=== PATIENT | female | born 1965 | race Caucasian/White ===

== ENCOUNTER 2018-04-24 23:15 | Emergency (ER) | payer OTHER ==
[~2018-04-24 23:15] MED LIST: ISOVUE-370 76%-LOCM 1 ML ONE
[2018-04-24] MEDS ORDERED: Morphine 10 MG/ML VIAL ONE (23:26)
[2018-04-24] MEDS ORDERED: Ondansetron HCl/PF 4 MG/2 ML Vial ONE (23:26)
[2018-04-24 23:50] LABS: #Basophils 0.2 thou/uL (0.0-0.2); #Eosinphils 0.4 thou/uL (0.0-0.7); #Lymphocytes 5.7 thou/uL (1.20-3.40); #Monocytes 0.8 thou/uL (0.11-0.59); #Neutrophils 7.2 thou/uL (1.40-6.50); %Basophils 1.1 % (0.0-1.0); %Eosinophils 3.1 % (0.0-10.0); %Lymphocytes 39.9 % (21.0-51.0); %Monocytes 5.8 % (0.0-10.0); %Neutrophils 50.1 % (42.0-75.0); Hemoglobin 14.1 g/dL (12.0-16.0); Mean Corpuscular HGB CONC 33.8 g/dL (32.0-36.0); Mean Corpuscular Hemoglobin 32.2 pg (27.0-31.0); Mean Corpuscular Volume 95.3 fL (78.0-98.0); Mean Platelet Volume 10.9 fL (7.4-10.4); Platelet Count 235 thou/uL (130-400); RBC Distribution Width 11.7 % (11.5-14.5); Red Blood Cell (RBC) Count 4.37 mill/uL (4.20-5.40); White Blood Cell (WBC) Count 14.3 thou/uL (4.8-10.8)
[2018-04-25] MEDS ORDERED: Fentanyl 100 MCG/2 ML VIAL ONE (00:09)
[2018-04-25] MEDS ORDERED: Ketorolac Tromethamine 30 MG/ML VIAL ONE (00:09)
[2018-04-25 00:28] LABS: Bilirubin Small (Negative); Blood, Urine Large (Negative); Clarity TURBID (Clear); Glucose, Urine (Dipstick) Negative (Negative); Leukocyte Negative (Negative); Nitrite Negative (Negative); Protein, Urine (Dipstick) 30 mg/dL (Neg-Trace); Urobilinogen 0.2 mg/dL (0.2-1.0); pH, Urine 5.5 (5.0-9.0)
[2018-04-25 00:29] LABS: Bacteria/HPF 1+ HPF (None Seen); Pathc Cast-AUWi Flag 2.03 (0-2.49); RBC/HPF GREATER THAN 50-TNTC HPF (0-3); WBC/HPF 21-50 HPF (0-3)
[2018-04-25 00:42] LABS: Hyaline Casts/LPF NONE SEEN LPF (0-3 Hyaline)
[2018-04-25 00:55] LABS: ALT (SGPT) 20 U/L (8-55); AST (SGOT) 21 U/L (5-34); Albumin 4.7 g/dL (3.5-5.0); Alkaline Phosphatase 76 U/L (40-150); Anion Gap 17 mmol/L (10-20); BUN (Urea Nitrogen) 13 mg/dL (9.8-20.1); Bilirubin, Total 0.3 mg/dL (0.2-1.2); Calc. Creatinine Clearance 0 mL/min (70-130); Calcium 9.7 mg/dL (7.8-10.44); Carbon Dioxide 21 mmol/L (22-29); Chloride 107 mmol/L (98-107); Estimated GFR-MDRD 67; Glucose 113 mg/dL (70-105); Protein, Total 7.7 g/dL (6.0-8.3); Sodium 141 mmol/L (136-145)
[2018-04-25 01:20] LABS: CK (CPK) 138 U/L (29-168); Lipase 53 U/L (8-78)
--- NOTE | 2018-04-25 07:19 | CT ---
CT ABDOMEN AND PELVIS WITH IV CONTRAST: Date: 04/24/18 HISTORY: Left lower quadrant pain. FINDINGS: Comparison made with exam of 12/27/16. The lung bases are clear. The liver, spleen, pancreas, adrenal glands, and kidneys are normal. The pa tient is post cholecystectomy and hysterectomy. There is a 4.0 mm calculus at the left UVJ with mild ipsilateral hydroureteronephrosis. No free air, free fluid, or lymphadenopathy seen. There are vascul ar calcifications without evidence of aneurysmal dilatation of the abdominal aorta. There are degener ative changes in the spine. There is sigmoid diverticulosis without evidence of diverticulitis. IMPRESSION: 1. 4.0 mm left UVJ calculus with mild ipsilateral hydroureteronephrosis. 2. Sigmoid diverticulosis. POS: [facility]
== END 2018-04-25 00:48 | disposition home or self-care (01) ==
LOC: ERS 23:15
DX: N13.2 Hydronephrosis with renal and ureteral calculous obstruction (principal); N30.00 Acute cystitis without hematuria; E03.9 Hypothyroidism, unspecified; K58.9 Irritable bowel syndrome, unspecified; F41.9 Anxiety disorder, unspecified; F32.9 Major depressive disorder, single episode, unspecified; F17.210 Nicotine dependence, cigarettes, uncomplicated; J45.909 Unspecified asthma, uncomplicated; Z79.899 Other long term (current) drug therapy
CPT/HCPCS: 74177; 80053; 81003; 81015; 82550; 83690; 85025; 87086; 96361; 96374; 96375; J1885; J2270; J2405; J3010

== ENCOUNTER 2018-05-04 04:29 | Observation (INO) | payer OTHER ==
[2018-05-04] MEDS ORDERED: Ketorolac Tromethamine 30 MG/ML VIAL ONE ×2 (04:49→10:27)
[2018-05-04 05:03] LABS: #Basophils 0.2 thou/uL (0.0-0.2); #Eosinphils 0.4 thou/uL (0.0-0.7); #Lymphocytes 5.1 thou/uL (1.20-3.40); #Monocytes 0.9 thou/uL (0.11-0.59); #Neutrophils 6.4 thou/uL (1.40-6.50); %Basophils 1.2 % (0.0-1.0); %Eosinophils 3.2 % (0.0-10.0); %Lymphocytes 39.4 % (21.0-51.0); %Monocytes 6.7 % (0.0-10.0); %Neutrophils 49.4 % (42.0-75.0); Hemoglobin 14.4 g/dL (12.0-16.0); Mean Corpuscular HGB CONC 34.2 g/dL (32.0-36.0); Mean Corpuscular Hemoglobin 32.5 pg (27.0-31.0); Mean Corpuscular Volume 94.8 fL (78.0-98.0); Mean Platelet Volume 10.7 fL (7.4-10.4); Platelet Count 272 thou/uL (130-400); RBC Distribution Width 12.1 % (11.5-14.5); Red Blood Cell (RBC) Count 4.43 mill/uL (4.20-5.40)
[2018-05-04 05:26] LABS: ALT (SGPT) 31 U/L (8-55); AST (SGOT) 40 U/L (5-34); Albumin 4.8 g/dL (3.5-5.0); Alkaline Phosphatase 68 U/L (40-150); Anion Gap 14 mmol/L (10-20); BUN (Urea Nitrogen) 16 mg/dL (9.8-20.1); Bilirubin, Total 0.5 mg/dL (0.2-1.2); Calc. Creatinine Clearance 0 mL/min (70-130); Calcium 10.5 mg/dL (7.8-10.44); Carbon Dioxide 23 mmol/L (22-29); Chloride 103 mmol/L (98-107); Estimated GFR-MDRD 36; Glucose 107 mg/dL (70-105); Potassium 5.1 mmol/L (3.5-5.1); Protein, Total 8.8 g/dL (6.0-8.3); Sodium 135 mmol/L (136-145)
[2018-05-04 05:28] LABS: Bilirubin Negative (Negative); Blood, Urine Negative (Negative); Clarity CLEAR (Clear); Glucose, Urine (Dipstick) Negative (Negative); Leukocyte Negative (Negative); Nitrite Negative (Negative); Protein, Urine (Dipstick) Negative (Neg-Trace); Specific Gravity, Urine 1.012 (1.002-1.036); Urobilinogen 0.2 mg/dL (0.2-1.0); pH, Urine 5.5 (5.0-9.0)
[2018-05-04] MEDS ORDERED: Morphine 4 MG/ML VIAL ONE (05:54)
[2018-05-04] MEDS ORDERED: Ondansetron HCl/PF 4 MG/2 ML Vial ONE ×2 (05:54→11:30)
--- NOTE | 2018-05-04 07:56 | RAD ---
ABDOMEN 1 VIEW: HISTORY: Worsening renal function. Past medical history of ureteral calculus, left side. COMPARISON: None. CORRELATION: CT abdomen and pelvis 04/24/2018. FINDINGS: Multiple calcifications project over the left hemipelvis. There is 1 calcification that corresponds to a previously noted distal left ureteral calculus. Given the patient's history, a distal left uret eral calculus is favored. Bowel gas pattern is nonspecific. IMPRESSION: Probable distal left ureteral calculus. POS: [facility]
[2018-05-04] MEDS ORDERED: Bisacodyl 10 MG SUPP ONE (08:47)
--- NOTE | 2018-05-04 09:23 | ULT ---
RENAL ULTRASOUND: HISTORY: Left-sided obstructive uropathy. COMPARISON: None. TECHNIQUE: Sagittal an transverse imaging of the kidneys is performed. FINDINGS: Bilaterally, no hydronephrosis. The right kidney measures 9.4 x 5.0 x 5.4 cm. The left kidney measu res 10.6 x 5.2 x 4.7 cm. The urinary bladder is identified. Orientor reports seeing a solitary ureteral jet. Orientor is unsure if it is left or right jet. IMPRESSION: No evidence of hydronephrosis. POS: [facility]
[2018-05-04] MEDS ORDERED: Fleet Enema 133 ML BOT FS SCH (09:30)
[2018-05-04] MEDS ORDERED: Magnesium Citrate 300 ML BOT PO SCH (12:00)
[2018-05-04] MEDS ORDERED: Magnesium Citrate 300 ML BOT ONE (12:24)
[2018-05-04] MEDS ORDERED: Promethazine HCl 25 MG/ML VIAL ONE (13:08)
[2018-05-04] MEDS ORDERED: Ondansetron HCl/PF 4 MG/2 ML Vial IVP PRN (14:51)
[2018-05-04] MEDS ORDERED: Acetaminophen 325 MG TAB PO PRN (14:51)
[2018-05-04] MEDS ORDERED: Sodium Chloride 0.9% 1,000 ML IV SCH (14:51)
[2018-05-04] MEDS ORDERED: Ondansetron ODT 4 MG TAB SL PRN (14:51)
[2018-05-04] MEDS ORDERED: Nicotine 14 MG PATCH TD SCH (16:00)
[2018-05-04] MEDS ORDERED: HYDROcodone/Acetaminophen 5/325 mg Tablet PO PRN (17:15)
[2018-05-04] MEDS: HYDROcodone/Acetaminophen 5/325 mg Tablet PO PRN (18:01)
[2018-05-04] MEDS: Sodium Chloride 0.9% 1,000 ML IV SCH (18:03)
--- NOTE | 2018-05-04 19:22 | HP ---
DATE OF ADMISSION: 05/04/2018 CHIEF COMPLAINT: Abdominal pain. PRIMARY CARE PHYSICIAN: Dr. Jaime Palacio. HISTORY OF PRESENT ILLNESS: Ms. Jean Baptiste is a 52-year-old female who has a past medical history of dyslipidemia, obesity, gastroesophageal reflux disease, IBS, hypothyroidism, renal stones, who came to the ER with some complaints of lower left quadrant pain. She states that this pain has been going on and off for the last 2 weeks, she was seen in the ER last week and was worked up for this, CT abdomen and pelvis did in fact show a renal stone, she was treated for this along with UTI, she was placed on [place] for pain control as needed along with Bactrim for her UTI. She states her pain started to get better; however, then it suddenly started getting worse over the weekend. She states over the last 5 days, the pain has been 8/10 pain, she also reports some nausea with no vomiting. She was told to follow up with a urologist when she left the ER last time; however, she has not been able to follow up with a urologist at this time. She has no other symptoms which include no chest pain, no shortness of breath. She does report some flank pain; however, this is just mild. REVIEW OF SYSTEMS: Positive for left lower quadrant pain, flank pain, nausea and all other review of systems negative, unless otherwise mentioned in the HPI. PAST MEDICAL HISTORY: Positive for IBS, hypothyroidism, asthma, obesity, depression and anxiety, renal stones. PAST SURGICAL HISTORY: Positive for cholecystectomy, hysterectomy, tonsillectomy. SOCIAL HISTORY: She does report half pack a day smoker, she reports alcohol use with 1-2 drinks per week, but denies any recreational drug use. PSYCHIATRIC HISTORY: Positive for depression and anxiety. FAMILY HISTORY: Denies any family history of heart disease. ALLERGIES: No known drug allergies. CURRENT MEDICATIONS: 1. Synthroid 25 mcg oral once daily. 2. Atorvastatin 40 mg once daily. 3. Protonix 40 mg daily. 4. Clonazepam 1 mg as needed. 5. Promethazine 12.5 mg as needed for nausea. 6. Tagamet 200 mg oral. 7. Cymbalta 60 mg once daily. 8. Zofran 4 mg every 6 hours as needed for nausea. 9. Toradol 10 mg oral every 6 hours as needed for pain. 10. Flomax 0.4 mg oral once daily. PHYSICAL EXAMINATION: GENERAL: She is alert and oriented x3, moderate distress due to pain. VITAL SIGNS: BP 152/77, pulse 60, respirations 20, temperature 97.6, O2 saturations 98% on room air. EENT: No scleral icterus. No conjunctival pallor. Moist mucous membranes. NECK: Supple, nontender, no masses noted, no JVD. RESPIRATORY: Clear to auscultation bilaterally. No wheezes or rhonchi. CARDIOVASCULAR: Positive S1 and 2 with a regularly rate and rhythm, no murmurs noted. ABDOMEN: Soft, tenderness in suprapubic area, positive bowel sounds. MUSCULOSKELETAL: Strength 5/5 in all 4 extremities. Moves all extremities equally. Normal range of motion. SKIN: No rashes or lesions noted. LYMPHATIC: No cervical, clavicular or posterior auricular lymphadenopathy noted. NEUROLOGIC: Cranial nerves II-XII intact. Deep tendon reflexes 2+. BACK: CVA tenderness bilaterally. LABORATORY DATA: WBC 13.0, RBC 4.48, hemoglobin 14.4. Sodium 135, potassium 5.1, creatinine 1.52, AST 40, ALT 31. Urinalysis unremarkable. DIAGNOSTIC IMAGING: CT abdomen and pelvis shows probable distal left ureteral calculus. Left-sided renal ultrasound shows no evidence of hydronephrosis at this time. ASSESSMENT AND PLAN: 1. Left lower quadrant pain, likely secondary to renal stone. We will place on IV fluid hydration which includes normal saline. Consult Urology for further evaluation. 2. Leukocytosis, likely reactive, UA negative for UTI. 3. Constipation, stable, she had received 2 suppositories and milk of magnesia. In the ER, she had resulted 3 bowel movements since. We will place on MiraLax daily and monitor closely. 4. Acute kidney injury, hold nephrotoxic medications, continue with intravenous fluids, monitor BMP. 5. Tobacco use. She has been counseled regarding smoking cessation and she will be placed on nicotine patch. 6. Alcohol use. She was advised to follow sobriety, we will monitor for withdrawal symptoms. 7. Hypertension, we will continue with home medications. We will follow closely. 8. Hypothyroidism, continue with home dose of Synthroid. 9. Depression and anxiety, continue with home regimen and follow closely. DISPOSITION: This patient will be admitted under observation, likely length of stay between 24-48 hours. Upon discharge, she will have further follow up with PCP and possible urologist as outpatient. MICK
[2018-05-05] MEDS: HYDROcodone/Acetaminophen 5/325 mg Tablet PO PRN (01:25)
[2018-05-05] MEDS ORDERED: Phenazopyridine HCl 97.5 MG TABLET PO SCH (01:45)
[2018-05-05] MEDS: Sodium Chloride 0.9% 1,000 ML IV SCH ×2 (03:19→10:19)
[2018-05-05 04:41] LABS: Eosinophils 5 % (0-10); Hemoglobin 12.4 g/dL (12.0-16.0); Lymphocytes 53 % (21-51); MDiff Complete? YES; Mean Corpuscular HGB CONC 33.5 g/dL (32.0-36.0); Mean Corpuscular Hemoglobin 32.4 pg (27.0-31.0); Mean Corpuscular Volume 96.6 fL (78.0-98.0); Mean Platelet Volume 9.9 fL (7.4-10.4); Monocytes 2 % (0-10); Neutrophil 40 % (42-75); PLT Morphology Comment Appears Adequate; Platelet Count 216 thou/uL (130-400); RBC Distribution Width 11.6 % (11.5-14.5); Red Blood Cell (RBC) Count 3.83 mill/uL (4.20-5.40); White Blood Cell (WBC) Count 8.1 thou/uL (4.8-10.8)
[2018-05-05 04:44] LABS: ALT (SGPT) 26 U/L (8-55); AST (SGOT) 26 U/L (5-34); Albumin 3.8 g/dL (3.5-5.0); Alkaline Phosphatase 56 U/L (40-150); Anion Gap 9 mmol/L (10-20); BUN (Urea Nitrogen) 12 mg/dL (9.8-20.1); Bilirubin, Total 0.6 mg/dL (0.2-1.2); Calc. Creatinine Clearance 110 mL/min (70-130); Carbon Dioxide 25 mmol/L (22-29); Chloride 112 mmol/L (98-107); Estimated GFR-MDRD 71; Globulin 2.5 g/dL (2.4-3.5); Glucose 79 mg/dL (70-105); Potassium 4.6 mmol/L (3.5-5.1); Protein, Total 6.3 g/dL (6.0-8.3); Sodium 141 mmol/L (136-145)
[2018-05-05] MEDS ORDERED: Polyethylene Glycol 3350 17 GM Packet PO SCH (09:00)
[2018-05-05] MEDS ORDERED: Enoxaparin Sodium 40 MG/0.4 ML SYRINGE SC SCH (09:00)
[2018-05-05] MEDS: Phenazopyridine HCl 97.5 MG TABLET PO SCH ×2 (10:18→13:28)
[2018-05-05 11:55] VITALS: BP 144/62; TEMP 97.8
[2018-05-05] MEDS ORDERED: Ibuprofen 600 MG TAB PO PRN (12:56)
--- NOTE | 2018-05-05 14:33 | CT ---
CT ABDOMEN WITHOUT COTNRAST CT PELVIS WIHTOUT CONTRAST: COMPARISON: 05/03/2016, 04/24/2018. HISTORY: Right-sided hydronephrosis and obstructive uropathy. Recently identified left ureteral calculus. FINDINGS: ABDOMEN CT: The lung bases are clear. Limited evaluation of the solid organs. Heart size is normal. No pericar dial effusion. Descending thoracic aorta and abdominal aorta are unchanged. Gallbladder is surgically absent. Limited evaluation of the solid organs by the lack of IV contrast. Grossly, no solid organ abnormali ty. No gastrohepatic, retrocrural, or periportal lymphadenopathy. No mesenteric mass, lymphadenopathy, free air, or free fluid. Limited evaluation of the alimentary canal by lack of oral contrast. No evidence of bowel obstructio n. Ileocecal junction is normal. Normal-caliber appendix. Scattered fecal material in a nondistend ed, nondilated colon. There are a few diverticulum in the sigmoid colon. No diverticulitis. There is a small focus of induration and air in the anterior right subcutaneous fat. Correlate for r ecent injection in this region. Bilaterally, no evidence of hydronephrosis, nephrolithiasis, or perinephric fat stranding. Bilateral ureters have a normal caliber. No hydroureter, periureteral fat stranding, or ureterolisthiasis. P reviously noted calcification along the left ureterovesicular junction has resolved. PELVIC CT: Hysterectomy changes are noted. Inadequate distention of the urinary bladder limits evaluation. No obvious calcifications within the urinary bladder. No pelvic mass, lymphadenopathy, free air, or jenn e fluid. No lytic or blastic lesions in the osseous structures. IMPRESSION: 1. No evidence of obstructive uropathy. 2. Interval passage of a previously noted calculus in the left ureterovesicular junction. POS: [facility]
--- NOTE | 2018-05-05 16:22 | CON ---
DATE OF CONSULTATION: 05/04/2018 REASON FOR CONSULTATION: Abdominal pain with a history of recent left ureteral calculus. HISTORY OF PRESENT ILLNESS: Ms. 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 Ms. Jean Baptiste had a CT scan done through the emergenc y room here at that time, apparently was discharged home with plans for followup with Dr. Ha . The patient developed new abdominal symptoms, this time in the right lower quadrant area and due t o the previous kidney stone, presented to the emergency department for evaluation and assessment. Aurea deglado was admitted via the emergency department on 05/04/2018. Patient underwent CT scanning today which demonstrates no evidence of ureteral calculus on the right side. No evidence of hydronephrosis or h ydroureter. There is no stranding about the kidney. The patient's left distal ureteral calculus is resolved based on the imaging studies. The patient was noted to have a large amount of stool loading consistent with dehydration and did have a bump in her creatinine as well. She was placed on high v olume replacement with IV fluid overnight. The patient has done well with improvement in her general creatinine. REVIEW OF SYSTEMS: CONSTITUTIONAL: No complaints of fever or chills. History of left lower quadran t pain in the last week and now right lower quadrant pain, as well as some discomfort in her flanks o n both sides. HEAD, EYES, EARS, NOSE, AND THROAT: Negative. PULMONARY: Negative. CARDIAC: Negat geetha. GASTROINTESTINAL: Positive for constipation history. GENITOURINARY: Patient reports that she has had some microscopic hematuria in the last year, but has never been able to see any blood in her urine. Of note, she is a current and long-term cigarette smoker. MUSCULOSKELETAL: Negative. ENDO CRINOLOGIC: Negative. PAST MEDICAL HISTORY: 1. Irritable bowel syndrome. 2. Hypothyroidism. 3. Asthma. 4. Obesity. 5. Depression and anxiety. 6. Nephrolithiasis as documented a little over a week ago; however, the patient does not report havi ng seen urologist before, but she has been in contact with Dr. Ha's office. PAST SURGICAL HISTORY: 1. Cholecystectomy. 2. Hysterectomy. 3. Tonsillectomy. SOCIAL HISTORY: The patient is a half pack per day cigarette smoker, which she has used long-term co nsists. Conservatively a [id number] cigarette smoking history. She consumes alcohol rarely. No r ecreational drug use. 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 PSYCHIATRIC HISTORY: Positive for depression and anxiety. FAMILY MEDICAL HISTORY: No family history of heart disease or kidney stones. ALLERGIES: No known drug allergies. COMPLETE OUTPATIENT MEDICATION LIST: Includes the followin. Synthroid 25 mcg p.o. daily. 2. Atorvastatin 40 mg p.o. daily. 3. Protonix 40 mg per day. 4. Clonazepam 1 mg as needed. 5. Promethazine 12.5 mg as needed for nausea. 6. Tagamet 200 mg per day. 7. Cymbalta 60 mg once daily. 8. Zofran 4 mg q.6 hours as needed for nausea. 9. Toradol 10 mg every 6 hours as needed for pain. 10. Flomax 0.4 mg p.o. daily. PHYSICAL EXAMINATION: VITAL SIGNS: Currently, patient has been afebrile throughout her hospitalization and is currently af ebrile with a current temperature of 97.8, pulse is 66, respirations 16, O2 saturation 95% on room ai r, blood pressure is 144/62. After hydration, she had a low range blood pressure at initial admissio n on 05/04/2018. HEAD, EYES, EARS, NOSE, AND THROA: Extraocular movements are intact. Sclerae are anicteric. Oropha rynx is clear. NECK: Supple. LUNGS: Clear to auscultation bilaterally. CARDIOVASCULAR: Regular rate and rhythm without murmur, rub or gallop. ABDOMEN: Soft, moderately obese, and nontender. Percussion of the abdomen reveals some resonance in all 4 quadrants. The patient does reports that she has had right lower quadrant pain during this ho spitalization which seems to be a little bit improved today. BACK: No costovertebral tenderness on either side. No bony tenderness along the course of the spine . PELVIC: Examination is deferred. EXTREMITIES: Appear within normal limits with no disability present. NEUROLOGIC: Cranial nerves III-XI are grossly intact. The patient is able to move all 4 extremities against gravity and has no gross focal neurologic deficits. LABORATORY DATA: The patient's urinalysis from 05/04/2018 showed no blood, nitrites or leukocyte est erase. The patient did have a urinalysis on 04/25/2018 which showed 21-50 white cells per high power field and greater than 50 red cells per high power field. The patient's urine was positive for 1+ b acteria at that time and 7-10 squamous epithelial cells were present consistent with possible contami nation of the specimen. Current urinalysis is essentially negative. Urine gravity on urinalysis is 1.012 indicating reasonab le hydration at this point. Hematologic profile on 05/05/2018 at 04:04 a.m. shows 8.1 thousand white cells. The patient's hemogl obin is 12.4 with hematocrit of 36.9. The patient does not have any evidence of left shift on a jason tologic profile from 05/04/2018. RADIOLOGIC STUDIES: I reviewed the patient's CT scan of the abdomen and pelvis which is available on the PACS system, but not through the hospital or ER documentation from 04/24/2018. This study demon strates a slight perfusion delay on this contrast study. The cortical medullary phase is delayed on the patient's left side. There is left-sided hydroureter, which extends to a very small calcificatio n about 2-3 mm at the ureterovesical junction on the left side. This measured on the calipers out at 4 mm. However, I think this calculus may be smaller than that. The patient had a followup CT scan of the abdomen and pelvis which was performed on 05/05/2018 at 1:00 p.m. and this study shows the pre viously observed left distal ureteral calculus is no longer present. There are phleboliths present w ithin the patient's pelvis, but these do not correlate with the patient's ureter on the right side. There is no evidence of significant hydronephrosis or hydroureter on either side. There is no strand ing on the left or right side and previously observed hydronephrosis and hydroureter seen on the susan ent's left side has resolved. Serum chemistries obtained on 04/24/2018 showed patient's white count elevated at 14.3 thousand; on it was 13.0 thousand and on 05/05/2018 it decreased to 8.1 thousand. The patient had no ev idence of left shift on any of those evaluations, but did have an elevated ANC of 7.2 thousand on 04/2018. Serum chemistries demonstrated an elevated serum creatinine of 1.52 on 05/04/2018 which res olved today to 0.84 close to her previous baseline of 0.89. ASSESSMENT AND PLAN: 1. History of left ureteral nephrolithiasis with apparent passage of her left ureteral calculus. Th e patient has no current evidence of obstruction or calculus in her urinary tract. CT scan obtained today shows no obstructing calculi, no hydronephrosis, hydroureter or stranding. At the present time , the patient would be suitable from a urologic standpoint for outpatient management. Clinical exami nation, the patient does not find current evidence of obstruction on clinical exam. The patient's wh ite count normalized suggesting that she has a decreased risk of infectious process. 2. Kidney stone risk factors. The patient apparently does have dehydration episodes as manifested b y the kidney stones and her constipation issues. Adequate hydration is recommended for the patient. The patient may well benefit from a followup evaluation in Dr. Ha's office with Fouzia romo. 3. Microscopic hematuria in the presence of cigarette smoking. This patient is a current and long-t erm cigarette smoker and has had the episode of microscopic hematuria that which showed greater than 50 red cells per high power field. This was in the context of a documented stone. This most likely is the cause. The patient may benefit from follow up for microscopic hematuria in the future. A uri nalysis would be an important follow up study. Total evaluation assessment time on this patient toda y is in excess of 60 minutes.
--- NOTE | 2018-05-05 18:27 | DIS ---
DATE OF ADMISSION: 05/04/2018 DATE OF DISCHARGE: 05/05/2018 DISCHARGE DIAGNOSES: 1. Left lower quadrant pain secondary to renal stone. 2. Renal stone, resolved. 3. Constipation, stable. 4. Acute kidney injury, resolved. 5. Hypertension, stable. 6. Hypothyroidism, stable. 7. Leukocytosis, resolved. CONSULTATIONS: Urology, Dr. Claudio. PERTINENT LABORATORY AND DIAGNOSTIC FINDINGS: WBC 8.1, RBC 3.83, hemoglobin 12.4, platelet 216,000. Sodium 141, potassium 4.6, creatinine 0.84, AST 26, ALT 26. Urinalysis unremarkable. CT abdomen an d pelvis with contrast showed probable distal left ureteral calculus. Left-sided renal ultrasound sh owed no evidence of hydronephrosis at this time. Repeat CT with stone protocol showed no evidence of obstructive uropathy with an interval passage of a previous noted calculus in the left ureterovesicu lar junction. HOSPITAL COURSE: Ms. Jean Baptiste is a pleasant 52-year-old female with a past medical history of dyslipide yu, obesity, gastroesophageal reflux disease, IBS, hypothyroidism, and previous history of renal sto milli, came in to the Emergency Department with some complaints of left lower quadrant pain, nausea wit h no vomiting on and off for the last 2 weeks. She had been seen prior to this visit for a workup, w hich included a CT abdomen and pelvis, which did show a renal stone at that time. She later was disc harged from the ED with a plan to follow up with a urologist and was put on Bactrim for a UTI at that time. She had stated that these symptoms continued; however, did improve for about a day or so and then returned. She states over the weekend, this had started to get worse, which brought her back to the ED. She also was found to be constipated. After a Fleets enema and a dose of milk of magnesia, she was able to resolve with 3 bowel movements. Her pain did originate in the left lower quadrant; however, it did radiate to the right side along with left flank. She then was admitted to [facility]. Urology services, Dr. Claudio, was consulted for further evaluation. She was made n.p.o. at midnight. She was started on MiraLax daily to prevent further constipation. Her pain did in fac t improve. Her symptoms of nausea also improved. She had no further episodes for the remainder of h ospital course. A repeat CT scan was obtained the next morning, which showed no evidence of obstruct geetha uropathy with an interval passage of a previously noted calculus in the left ureterovesicular bill ction. Dr. Claudio came and evaluated the patient and he had felt at this time that the patient had pa ssed her stone. He had felt that the patient's status of dehydration episodes manifested by the kidn ey stones and her constipation issues, he did in fact recommend an adequate hydration regimen for the patient. He also recommended following up with the patient's urologist, Dr. Ha, for furthe r uro risk evaluation. He states, at this time, no further workup needed along with no surgical inte rvention at this time, as the patient most likely had passed her stone. She was seen and examined pr ior to discharge. No further complaints of chest pain, shortness of breath, or abdominal pain. She was nontender to palpation throughout her abdomen with positive bowel sounds. She was recommended to continue the MiraLax daily to prevent constipation and also to follow an adequate hydration regimen as well. She had verbalized her understanding for the care plan. She also was instructed to continu e her home medications and follow up with Dr. Ha as outpatient. She was determined to be me dically stable for discharge home on 05/05/2018. DISCHARGE MEDICATIONS: 1. Ibuprofen 600 mg oral every 6 hours as needed for mild pain. 2. MiraLax 17 grams oral daily. 3. Clonazepam 1 mg twice daily as needed for anxiety. 4. Protonix 40 mg daily. 5. Atorvastatin 40 mg daily. 6. Synthroid 50 mcg oral daily. 7. Wellbutrin 75 mg twice daily. 8. Tagamet 300 mg oral 4 times daily. FOLLOWUP: The patient was instructed to follow up with her primary care physician, Dr. Jaime Palacio , in 1-2 weeks. She also was instructed to follow up with Dr. Ha, Urology, in 1-2 weeks. CONDITION ON DISCHARGE: Stable. ACTIVITY: No restrictions. DIET: Regular with adequate hydration. CODE STATUS: FULL CODE. DISPOSITION: Home on 05/05/2018.
[2018-05-05] MEDS ORDERED: buPROPion 75 MG TAB PO SCH (21:00)
== END 2018-05-05 14:58 | disposition home or self-care (01) ==
LOC: ERS 04:29 → ONC 11:43
PROVIDERS: ADMIT Internal Medicine Infectious Disease; ATTEND Internal Medicine Infectious Disease
DX: N20.0 Calculus of kidney (principal); E78.5 Hyperlipidemia, unspecified; N17.9 Acute kidney failure, unspecified; K58.1 Irritable bowel syndrome with constipation; D72.829 Elevated white blood cell count, unspecified; K21.9 Gastro-esophageal reflux disease without esophagitis; E03.9 Hypothyroidism, unspecified; J45.909 Unspecified asthma, uncomplicated; F41.8 Other specified anxiety disorders; F17.210 Nicotine dependence, cigarettes, uncomplicated; F32.9 Major depressive disorder, single episode, unspecified; F41.9 Anxiety disorder, unspecified; E66.9 Obesity, unspecified; Z68.29 Body mass index [BMI] 29.0-29.9, adult; Z79.899 Other long term (current) drug therapy
CPT/HCPCS: 36415; 74018; 74176; 76770; 80053; 81003; 85025; 96361; 96365; 96372; 96375; 96376; G0378; J1650; J1885; J2270; J2405; J2550

== ENCOUNTER 2018-06-19 01:30 | Emergency (ER) | payer OTHER ==
[2018-06-19] MEDS ORDERED: Acetaminophen 325 MG TAB ONE (01:52)
[2018-06-19] MEDS ORDERED: Ondansetron ODT 4 MG TAB ONE (01:52)
[2018-06-19] MEDS ORDERED: Ketorolac Tromethamine 60 MG/2 ML VIAL ONE (02:36)
--- NOTE | 2018-06-19 08:53 | CT ---
PRELIMINARY REPORT/[facility]/EMERGENTY AFTER-HOURS PROCEDURE CT Head Without Contrast EXAM DATE/TIME: 06/19/2018 2:02 AM CLINICAL HISTORY: 52 years old, female; Injury or trauma; Injury history: Head trauma; Work related; Initial encounter; Abrasion; Head, generalized; Patient HX: Hit head on xray machine. Feeling pain to head and behind l eft eye. TECHNIQUE: Axial computed tomography images of the head/brain without contrast. COMPARISON: No relevant prior studies available. FINDINGS: Brain: Normal. Ventricles: Normal. Bones/joints: Normal. Sinuses: Normal as visualized. Mastoid air cells: Normal as visualized. Soft tissues: Normal. IMPRESSION: No acute intracranial abnormality. Thank you for allowing us to participate in the care of your patient. Dictated and Authenticated by: Etienne Tony MD 06/19/2018 2:14 AM Central Time ([place] & [place]) FINAL REPORT EMERGENCY AFTER HOURS CT BRAIN: Date: 06/19/18 FINDINGS/IMPRESSION: I agree with the above provided preliminary interpretation from [facility]. No acute intracranial hemorrhage or mass effect. POS: [facility]
== END 2018-06-19 02:45 | disposition home or self-care (01) ==
LOC: ERS 01:30
DX: S09.90XA Unspecified injury of head, initial encounter (principal); E03.9 Hypothyroidism, unspecified; E78.5 Hyperlipidemia, unspecified; F17.210 Nicotine dependence, cigarettes, uncomplicated; Z79.899 Other long term (current) drug therapy; W31.89XA Contact with other specified machinery, initial encounter
CPT/HCPCS: 70450; 96372; J1885; Q0162

== ENCOUNTER 2018-12-10 10:56 | Outpatient (CLI) | payer OTHER | END 2018-12-10 10:57 | disposition home or self-care (01) | LOC: DTY/OP 10:56 | PROVIDERS: ATTEND Surgery | DX: E66.01 Morbid (severe) obesity due to excess calories (principal) | CPT/HCPCS: 97802 ==

== ENCOUNTER 2018-12-26 23:50 | Emergency (ER) | payer OTHER ==
[2018-12-27 00:35] LABS: #Basophils 0.2 thou/uL (0.0-0.2); #Eosinphils 0.1 thou/uL (0.0-0.7); #Lymphocytes 3.4 thou/uL (1.20-3.40); #Monocytes 0.7 thou/uL (0.11-0.59); #Neutrophils 10.7 thou/uL (1.40-6.50); %Basophils 1.2 % (0.0-1.0); %Eosinophils 0.8 % (0.0-10.0); %Lymphocytes 22.6 % (21.0-51.0); %Monocytes 4.5 % (0.0-10.0); %Neutrophils 70.9 % (42.0-75.0); Hemoglobin 14.5 g/dL (12.0-16.0); Mean Corpuscular HGB CONC 33.8 g/dL (32.0-36.0); Mean Corpuscular Volume 94.7 fL (78.0-98.0); Mean Platelet Volume 10.9 fL (7.4-10.4); Platelet Count 221 thou/uL (130-400); RBC Distribution Width 12.1 % (11.5-14.5); Red Blood Cell (RBC) Count 4.54 mill/uL (4.20-5.40)
[2018-12-27] MEDS ORDERED: Ondansetron PF 4 MG/2 ML Vial ONE (00:57)
[2018-12-27] MEDS ORDERED: Morphine 4 MG/ML VIAL ONE ×2 (00:57→02:08)
[2018-12-27 00:59] LABS: ALT (SGPT) 22 U/L (8-55); AST (SGOT) 23 U/L (5-34); Albumin 4.5 g/dL (3.5-5.0); Alkaline Phosphatase 76 U/L (40-150); Anion Gap 17 mmol/L (10-20); BUN (Urea Nitrogen) 16 mg/dL (9.8-20.1); Bilirubin, Total 0.3 mg/dL (0.2-1.2); Calc. Creatinine Clearance 0 mL/min (70-130); Calcium 10.1 mg/dL (7.8-10.44); Carbon Dioxide 19 mmol/L (22-29); Chloride 107 mmol/L (98-107); Estimated GFR-MDRD 57; Globulin 3.5 g/dL (2.4-3.5); Glucose 112 mg/dL (70-105); Lipase 26 U/L (8-78); Potassium 4.4 mmol/L (3.5-5.1); Sodium 139 mmol/L (136-145)
[2018-12-27 01:09] LABS: Bilirubin Small (Negative); Blood, Urine Negative (Negative); Clarity CLOUDY (Clear); Glucose, Urine (Dipstick) Negative (Negative); Leukocyte Negative (Negative); Nitrite Negative (Negative); Protein, Urine (Dipstick) Negative (Neg-Trace); Specific Gravity, Urine 1.028 (1.002-1.036); Urobilinogen 0.2 mg/dL (0.2-1.0)
--- NOTE | 2018-12-27 07:41 | CT ---
PRELIMINARY REPORT/[facility]/AFTER HOURS PROCEDURE EXAM: CT Abdomen and Pelvis With Contrast EXAM DATE/TIME: 12/27/2018 1:10 AM CLINICAL HISTORY: 53 years old, female; Abdominal pain; Localized; Prior surgery; Patient HX: Er 8. 53 y/o F presents t o ED C/O sudden onset of lower abd pain at 1900 last night, with associated diarrhea at approx 2200 last night, nausea. Denies hematuria, dysuria, vomiting, bld in stool, fever, chills, vaginal bleedin g or discharge. No current RX steroid use. Surgical history of cholecystectomy, hysterectomy TECHNIQUE: Imaging protocol: Axial computed tomography images of the abdomen and pelvis with intravenous contrast. Coronal reformatted images were created and reviewed. COMPARISON: No relevant prior studies available. FINDINGS: ABDOMEN: Liver: No acute findings. Fatty liver. No mass. Gallbladder and bile ducts: Prior cholecystectomy. Pancreas: No acute findings. No mass. No ductal dilation. Spleen: No acute findings. No mass. Adrenals: No acute findings. No mass. Kidneys and ureters: No acute findings. No mass. No hydronephrosis. Stomach and bowel: Fluid-filled distal small bowel loops and colon segments with possible wall enhancement/thickening, which could relate to enterocolitis. No evidence of bowel obstruction. Appendix: Normal appendix. PELVIS: Bladder: The bladder is decompressed. Reproductive: No acute findings. ABDOMEN and PELVIS: Intraperitoneal space: No free air. No significant fluid collection. Bones/joints: No acute fracture. Soft tissues: No acute findings. Vasculature: Atherosclerotic calcifications. No aortic aneurysm. Lymph nodes: No significant lymphadenopathy. IMPRESSION: Possible enterocolitis. Thank you for allowing us to participate in the care of your patient. Dictated and Authenticated by: Jose Manuel Mir MD 12/27/2018 2:08 AM Central Time ([place] & [place]) FINAL REPORT CT ABDOMEN AND PELVIS WITH IV CONTRAST PERFORMED ON AN EMERGENCY BASIS 12/27/2018 0112 HOURS HISTORY: Abdominal pain. Nausea and diarrhea. COMPARISON: 05/05/2018 FINDINGS: Agree with the preliminary report by Dr. Mir from [facility]. No urinary tract abnormalities are apparent. Gallbladder is surgically absent. Prominent atheroscle rosis. Fluid-filled loops of small bowel and colon with subtle wall enhancement. Possible enterocolitis. No evidence of bowel obstruction. Code QA Transcribed Date/Time: 12/27/2018 8:15 AM
== END 2018-12-27 02:41 | disposition home or self-care (01) ==
LOC: ERS 23:50
DX: R10.30 Lower abdominal pain, unspecified (principal); E03.9 Hypothyroidism, unspecified; K58.9 Irritable bowel syndrome, unspecified; J45.909 Unspecified asthma, uncomplicated; F41.9 Anxiety disorder, unspecified; F32.9 Major depressive disorder, single episode, unspecified; F17.210 Nicotine dependence, cigarettes, uncomplicated; Z79.899 Other long term (current) drug therapy
CPT/HCPCS: 74177; 80053; 81003; 83690; 85025; 96374; 96375; 96376; J2270; J2405

== ENCOUNTER 2019-01-07 12:38 | Outpatient (CLI) | payer OTHER | END 2019-01-07 12:39 | disposition home or self-care (01) | LOC: DTY/OP 12:38 | PROVIDERS: ATTEND Surgery | DX: E66.01 Morbid (severe) obesity due to excess calories (principal) | CPT/HCPCS: 97802 ==

== ENCOUNTER 2019-02-05 12:48 | Outpatient (CLI) | payer OTHER | END 2019-02-05 12:49 | disposition home or self-care (01) | LOC: DTY/OP 12:48 | PROVIDERS: ATTEND Surgery | DX: E66.01 Morbid (severe) obesity due to excess calories (principal) | CPT/HCPCS: 97802 ==

== ENCOUNTER 2019-03-14 08:52 | Outpatient (CLI) | payer OTHER | END 2019-03-14 08:53 | disposition home or self-care (01) | LOC: DTY/OP 08:52 | PROVIDERS: ATTEND Family Medicine | DX: E66.01 Morbid (severe) obesity due to excess calories (principal) | CPT/HCPCS: 97802 ==

== ENCOUNTER 2019-04-15 10:15 | Outpatient (CLI) | payer OTHER ==
[2019-04-15 15:32] LABS: #Basophils 0.1 thou/uL (0.0-0.2); #Eosinphils 0.2 thou/uL (0.0-0.7); #Lymphocytes 3.1 thou/uL (1.20-3.40); #Monocytes 0.7 thou/uL (0.11-0.59); #Neutrophils 6.7 thou/uL (1.40-6.50); %Basophils 1.3 % (0.0-1.0); %Eosinophils 1.9 % (0.0-10.0); %Lymphocytes 28.6 % (21.0-51.0); %Monocytes 6.4 % (0.0-10.0); %Neutrophils 61.9 % (42.0-75.0); Hemoglobin 14.8 g/dL (12.0-16.0); Mean Corpuscular HGB CONC 34.9 g/dL (32.0-36.0); Mean Corpuscular Hemoglobin 32.5 pg (27.0-31.0); Mean Corpuscular Volume 93.1 fL (78.0-98.0); Mean Platelet Volume 11.1 fL (7.4-10.4); Platelet Count 216 thou/uL (130-400); Red Blood Cell (RBC) Count 4.55 mill/uL (4.20-5.40); White Blood Cell (WBC) Count 10.9 thou/uL (4.8-10.8)
[2019-04-15 15:48] LABS: Hemoglobin A1c 5.5 % (4.0-6.0)
--- NOTE | 2019-04-15 15:49 | RAD ---
EXAM: Two views chest PROVIDED CLINICAL HISTORY: Preop COMPARISON: 01/14/2015 FINDINGS: Cardiac and mediastinal silhouette appears within normal limits. Lungs appear free of significant opa city. No pleural fluid or pneumothorax apparent. IMPRESSION: No evidence for an acute cardiopulmonary process.
[2019-04-15 15:51] LABS: ALT (SGPT) 26 U/L (8-55); AST (SGOT) 20 U/L (5-34); Albumin 4.5 g/dL (3.5-5.0); Alkaline Phosphatase 74 U/L (40-110); Anion Gap 15 mmol/L (10-20); BUN (Urea Nitrogen) 19 mg/dL (9.8-20.1); Bilirubin, Direct 0.2 mg/dL (0.1-0.3); Bilirubin, Total 0.4 mg/dL (0.2-1.2); Calc. Creatinine Clearance 0 mL/min (70-130); Calcium 10.4 mg/dL (7.8-10.44); Carbon Dioxide 23 mmol/L (22-29); Chloride 104 mmol/L (98-107); Estimated GFR-MDRD 60; Globulin 3.2 g/dL (2.4-3.5); Glucose 90 mg/dL (70-105); Potassium 3.8 mmol/L (3.5-5.1); Protein, Total 7.7 g/dL (6.0-8.3); Sodium 138 mmol/L (136-145)
--- NOTE | 2019-04-16 19:58 | EKG ---
Test Reason : Blood Pressure : / mmHG Vent. Rate : 066 BPM Atrial Rate : 066 BPM P-R Int : 144 ms QRS Dur : 084 ms QT Int : 370 ms P-R-T Axes : 050 043 107 degrees QTc Int : 387 ms Normal sinus rhythm Nonspecific T wave abnormality Abnormal ECG When compared with ECG of 16-MAY-2016 20:49, Nonspecific T wave abnormality, worse in Inferior leads Confirmed by BEAR AVILES, SÁngel ([id number]) on 04/16/2019 7:58:12 PM Referred By: PATI Confirmed By:DR. Jean SIFUENTES MD
== END 2019-04-15 10:16 | disposition home or self-care (01) ==
LOC: LABBT 10:15
PROVIDERS: ATTEND Surgery
DX: Z01.818 Encounter for other preprocedural examination (principal); E66.01 Morbid (severe) obesity due to excess calories
CPT/HCPCS: 71046; 80053; 80076; 83036; 85025; 93005; 93010

== ENCOUNTER 2019-04-15 14:30 | Inpatient (IN) | payer OTHER ==
[2019-04-15 14:48] VITALS: BMI 35.5
[2019-04-24] MEDS ORDERED: Famotidine/PF 20 mg/2ml Vial ONE (09:01)
[2019-04-24] MEDS ORDERED: Heparin 5,000 UNITS/ML VIAL ONE (09:01)
[2019-04-24] MEDS ORDERED: Midazolam HCl 2 mg/2 ml Vial ONE ×2 (10:07→10:09)
[2019-04-24] MEDS ORDERED: SUGAMMADEX SODIUM 200 MG/2 ML VIAL ONE (10:09)
[2019-04-24] MEDS ORDERED: Fentanyl 100 MCG/2 ML VIAL ONE ×3 (10:09→12:05)
[2019-04-24] MEDS ORDERED: Bupivacaine/Epinephrine 0.25% 30 ML VIAL ONE ×2 (10:18→10:25)
[2019-04-24] MEDS ORDERED: Ondansetron HCl/PF 4 MG/2 ML Vial IVP PRN (11:54)
[2019-04-24] MEDS ORDERED: Promethazine HCl 25 MG/ML VIAL IM PRN ×3 (11:54→13:09)
[2019-04-24] MEDS ORDERED: Promethazine HCl 25 MG/ML VIAL SLOW IVP PRN (11:54)
[2019-04-24] MEDS ORDERED: diphenhydrAMINE 50 MG/ML VIAL IM PRN (11:59)
[2019-04-24] MEDS ORDERED: fentaNYL Citrate/PF 2,000 MCG in Sodium Chloride 0.9% 60 ML IV PRN (11:59)
[2019-04-24] MEDS ORDERED: Zolpidem Tartrate 5 MG TAB PO PRN (11:59)
[2019-04-24] MEDS ORDERED: Naloxone HCl 0.4 mg/ml Vial IV PRN (11:59)
[2019-04-24] MEDS ORDERED: diphenhydrAMINE 25 MG CAP PO PRN (11:59)
[2019-04-24] MEDS ORDERED: Ondansetron PF 4 MG/2 ML Vial IVP PRN ×2 (11:59→13:09)
[2019-04-24] MEDS ORDERED: diphenhydrAMINE 50 MG/ML VIAL IVP PRN ×2 (11:59→13:09)
[2019-04-24] MEDS ORDERED: Communication Order-Pharmacy FS SCH (12:00)
[2019-04-24] MEDS ORDERED: Dextrose 5% in Water 1,000 ML IV PRN (13:09)
[2019-04-24] MEDS ORDERED: Hydrocodone-Acetamin 15 ML UDCUP PO PRN (13:09)
[2019-04-24] MEDS ORDERED: Dextrose 50% Abboject 50 ML SYRINGE SLOW IVP PRN (13:09)
[2019-04-24] MEDS ORDERED: clonazePAM 1 MG TAB PO PRN (13:09)
[2019-04-24] MEDS ORDERED: hydrALAZINE 20 MG/ML VIAL SLOW IVP PRN (13:09)
[2019-04-24] MEDS: D5 1/2 NS w/20 mEq KCL 1,000 ML IV SCH ×2 (13:30→21:31)
--- NOTE | 2019-04-24 16:58 | OP ---
DATE OF PROCEDURE: 04/24/2019 PREOPERATIVE DIAGNOSES: 1. Morbid obesity with body mass index of 35. 2. Hypercholesteremia. POSTOPERATIVE DIAGNOSES: 1. Morbid obesity with body mass index of 35. 2. Hypercholesteremia. 3. Hiatal hernia. PROCEDURES PERFORMED: 1. Laparoscopic sleeve gastrectomy with [place] staple line reinforcements and 38-[place] bougie. 2. Paraesophageal hiatal hernia repair without fundoplication. 3. Esophagogastroduodenoscopy. ANESTHESIA: General. ESTIMATED BLOOD LOSS: Minimal. COMPLICATIONS: None. SPECIMENS: Stomach. FINDINGS: Normal postoperative EGD. DESCRIPTION OF PROCEDURE: The patient was taken to the operating room and laid supine on the operating room table. After general anesthetic was obtained, the arms and legs were double strapped to bariatric table. OG tube was used to decompress the stomach. The abdomen was prepped and draped in a sterile fashion. Left subcostal 5-mm Optiview trocar was placed in the usual fashion. High-flow pneumoperitoneum was obtained. Two abdominal 12-mm ports as well as a right subcostal 5-mm port were placed under direct visualization. A 5-mm incision was made at the xiphoid. Karen was used to raise the liver off the GE junction. Short gastrics were taken down from mid body of stomach to left johnathon of diaphragm. Left johnathon, posterior fundus, and angle of His were completely dissected. This reveals there to be a paraesophageal hiatal hernia. A circumferential dissection of the esophagus was performed. A 38 bougie was brought into tip left in the antrum of the stomach. One Ethibond suture and the tie knot system was used to close the crural defect posteriorly. Multiple loads of the [place] stapling device were used to perform the sleeve. The first was a green load fired up at a distance of 6 cm proximal to the pylorus angled up towards the incisura. Multiple loads were then fired up along the bougie and the stomach was completely transected at the angle of His. The stomach was removed from the left abdominal incision. This fascial defect was closed using GraNee needle and 0 Vicryl tie. EGD scope was passed through esophagus, stomach to the level of duodenum without obstruction. There was no stricture at the incisura. The EGD scope was used to decompress the stomach. It was pulled and removed. Karen retractors were removed under direct visualization without bleeding. A few bleeders on the staple line were clipped using laparoscopic clip. All port sites were infiltrated and removed under direct visualization without bleeding. Pneumoperitoneum was let down. Vicryl was used to close the fascial defect from the left abdominal incisions. All incisions were irrigated and closed using 4-0 Monocryl and Dermabond. The patient was sent to Recovery in stable condition. All instrument counts, needle counts, and lap counts were correct. Job ID: [id number]
[2019-04-24] MEDS: Acetaminophen 1,000 MG in Premix Bag 1 BAG IVPB SCH ×2 (17:00→21:32)
[2019-04-24] MEDS ORDERED: Enoxaparin Sodium 40 MG/0.4 ML SYRINGE SC SCH (21:00)
[2019-04-25] MEDS: Acetaminophen 1,000 MG in Premix Bag 1 BAG IVPB SCH ×2 (04:17→09:41)
[2019-04-25 04:47] LABS: #Basophils 0.1 thou/uL (0.0-0.2); #Lymphocytes 1.4 thou/uL (1.20-3.40); #Monocytes 0.5 thou/uL (0.11-0.59); #Neutrophils 12.8 thou/uL (1.40-6.50); %Basophils 0.5 % (0.0-1.0); %Eosinophils 0.1 % (0.0-10.0); %Lymphocytes 9.4 % (21.0-51.0); %Monocytes 3.1 % (0.0-10.0); Hemoglobin 12.3 g/dL (12.0-16.0); Mean Corpuscular HGB CONC 34.9 g/dL (32.0-36.0); Mean Corpuscular Volume 94.5 fL (78.0-98.0); Mean Platelet Volume 10.5 fL (7.4-10.4); Platelet Count 198 thou/uL (130-400); RBC Distribution Width 11.9 % (11.5-14.5); Red Blood Cell (RBC) Count 3.72 mill/uL (4.20-5.40); White Blood Cell (WBC) Count 14.7 thou/uL (4.8-10.8)
[2019-04-25 05:10] LABS: Anion Gap 13 mmol/L (10-20); BUN (Urea Nitrogen) 8 mg/dL (9.8-20.1); Calc. Creatinine Clearance 140 mL/min (70-130); Carbon Dioxide 21 mmol/L (22-29); Chloride 107 mmol/L (98-107); Estimated GFR-MDRD 82; Glucose 124 mg/dL (70-105); Potassium 4.6 mmol/L (3.5-5.1); Sodium 136 mmol/L (136-145)
[2019-04-25] MEDS: D5 1/2 NS w/20 mEq KCL 1,000 ML IV SCH (06:02)
--- NOTE | 2019-04-25 07:52 | PDOC.GSPN ---
Surgery Progress Note: Subj - Subjective Narrative: Patient is a 53F who is post op day 1 status post sleeve gastrectomy. Patient complains of soreness in the abdomen and shoulder. Patient ambulating well and tolerating liquid diet. Denies nausea and vomiting. Surgery Progress Note: Obj - Vital signs Vital signs: Vital Signs - Most Recent Temp Pulse Resp BP Pulse Ox 97.9 F 75 20 125/78 93 L 04/25/19 07:32 04/25/19 07:32 04/25/19 07:32 04/25/19 07:32 04/25/19 07:32 - Physical Exam General: no distress Cardiovascular: regular rate and rhythm Abdomen: soft, positive bowel sounds Wound: healing well Surgery Progress Note: Results - Labs Result Diagrams: 04/25/19 04:26 04/25/19 04:26 Lab results: Laboratory Results - last 24 hr 04/25/19 04/25/19 04:26 04:26 WBC 14.7 H RBC 3.72 L Hgb 12.3 Hct 35.1 L MCV 94.5 MCH 33.0 H MCHC 34.9 RDW 11.9 Plt Count 198 MPV 10.5 H Neutrophils % 87.0 H Lymphocytes % 9.4 L Monocytes % 3.1 Eosinophils % 0.1 Basophils % 0.5 Neutrophils # 12.8 H Lymphocytes # 1.4 Monocytes # 0.5 Eosinophils # 0.0 Basophils # 0.1 Sodium 136 Potassium 4.6 Chloride 107 Carbon Dioxide 21 L Anion Gap 13 BUN 8 L Creatinine 0.74 Estimated GFR (MDRD) 82 Glucose 124 H Calcium 9.0 Surgery Progress Note: A/P - Plan Plan: Post op day 1 status post sleeve gastrectomy. Doing well. -Consider discharge soon -Encourage ambulation as tolerated Addendum - Physician - Physician Attestation Date/Time: 04/25/19 1010 I personally performed or re-performed the physical examination and medical decision making. I have verified all student documentation or findings, including history, physical exam and/or medical decision making. Doing well. DC today. F/U 2 weeks
[2019-04-25] MEDS ORDERED: VILAZODONE HCL PO SCH (09:00)
[2019-04-25] MEDS ORDERED: Pantoprazole 40 MG VIAL IVP SCH (09:00)
[2019-04-25 11:33] VITALS: BP 131/79; TEMP 98.2
== END 2019-04-25 12:05 | disposition home or self-care (01) | DRG 621 ==
LOC: SURG A 04-24 08:00 → SURG B 04-24 12:37
PROVIDERS: ADMIT Surgery; ATTEND Surgery
PROC: 0DB64Z3 Excision of Stomach, Percutaneous Endoscopic Approach, Vertical (ICD-10-PCS; principal; 2019-04-24)
PROC: 0BQT4ZZ Repair Diaphragm, Percutaneous Endoscopic Approach (ICD-10-PCS; 2019-04-24)
PROC: 0DJ08ZZ Inspection of Upper Intestinal Tract, Via Natural or Artificial Opening Endoscopic (ICD-10-PCS; 2019-04-24)
DX: E66.01 Morbid (severe) obesity due to excess calories (principal); E78.5 Hyperlipidemia, unspecified; K44.9 Diaphragmatic hernia without obstruction or gangrene; J45.909 Unspecified asthma, uncomplicated; F17.210 Nicotine dependence, cigarettes, uncomplicated; F32.9 Major depressive disorder, single episode, unspecified; E03.9 Hypothyroidism, unspecified; F41.9 Anxiety disorder, unspecified; Z79.899 Other long term (current) drug therapy; Z68.35 Body mass index [BMI] 35.0-35.9, adult; Z90.710 Acquired absence of both cervix and uterus; Z90.89 Acquired absence of other organs
CPT/HCPCS: 36415; 80048; 85025; 88307; 88312; 94640; C9113; J0131; J0690; J1644; J1650; J2250; J3010; J7620; S0028

== ENCOUNTER 2019-06-24 15:13 | Day surgery (SDC) | payer OTHER ==
[2019-06-24 15:30] VITALS: BP 130/64; TEMP 98
[2019-06-24] MEDS ORDERED: Sodium Chloride 0.9% 1,000 ML IV SCH (15:30)
[2019-06-24] MEDS ORDERED: Thiamine HCl 200 MG/2 ML VIAL SLOW IVP SCH (15:30)
[2019-06-24] MEDS ORDERED: Multivitamins, Adult 10 ML in Sodium Chloride 0.9% 500 ML IV SCH (15:30)
== END 2019-06-24 17:52 | disposition home or self-care (01) ==
LOC: ONC/OP 15:13
PROVIDERS: ATTEND Surgery
DX: E86.0 Dehydration (principal)
CPT/HCPCS: 96361; 96365; 96375; J3411; J7050

== ENCOUNTER 2019-09-09 20:08 | Emergency (ER) | payer OTHER ==
[2019-09-09] MEDS ORDERED: Lorazepam 2 MG/ML VIAL ONE (20:26)
[2019-09-09] MEDS ORDERED: Lorazepam 1 MG TAB ONE (21:40)
[2019-09-09 21:48] LABS: #Basophils 0.1 thou/uL (0.0-0.2); #Eosinphils 0.2 thou/uL (0.0-0.7); #Lymphocytes 4.3 thou/uL (1.20-3.40); #Monocytes 0.8 thou/uL (0.11-0.59); %Basophils 1.2 % (0.0-1.0); %Eosinophils 2.5 % (0.0-10.0); %Lymphocytes 45.6 % (21.0-51.0); %Neutrophils 42.7 % (42.0-75.0); Hemoglobin 14.3 g/dL (12.0-16.0); Mean Corpuscular HGB CONC 35.1 g/dL (32.0-36.0); Mean Corpuscular Hemoglobin 33.2 pg (27.0-31.0); Mean Corpuscular Volume 94.8 fL (78.0-98.0); Mean Platelet Volume 11.7 fL (7.4-10.4); Platelet Count 213 thou/uL (130-400); RBC Distribution Width 11.9 % (11.5-14.5); White Blood Cell (WBC) Count 9.4 thou/uL (4.8-10.8)
[2019-09-09 22:02] LABS: ALT (SGPT) 18 U/L (8-55); AST (SGOT) 21 U/L (5-34); Albumin 4.5 g/dL (3.5-5.0); Alkaline Phosphatase 85 U/L (40-110); Anion Gap 16 mmol/L (10-20); BUN (Urea Nitrogen) 15 mg/dL (9.8-20.1); Bilirubin, Total 0.5 mg/dL (0.2-1.2); Calc. Creatinine Clearance 0 mL/min (70-130); Calcium 10.1 mg/dL (7.8-10.44); Carbon Dioxide 22 mmol/L (22-29); Chloride 106 mmol/L (98-107); Estimated GFR-MDRD 64; Glucose 127 mg/dL (70-105); Potassium 3.6 mmol/L (3.5-5.1); Protein, Total 7.5 g/dL (6.0-8.3); Sodium 140 mmol/L (136-145)
--- NOTE | 2019-09-09 22:14 | RAD ---
Portable frontal chest radiograph: 09/09/2019 COMPARISON: 05/16/2016 HISTORY: Evaluation of anxiety FINDINGS: Lungs are clear. Heart and mediastinal contours appear within normal limits. IMPRESSION: No acute findings.
== END 2019-09-09 22:54 | disposition home or self-care (01) ==
LOC: ERS 20:08
DX: R07.9 Chest pain, unspecified (principal); E03.9 Hypothyroidism, unspecified; J45.909 Unspecified asthma, uncomplicated; E78.5 Hyperlipidemia, unspecified; F41.9 Anxiety disorder, unspecified; F32.9 Major depressive disorder, single episode, unspecified; F17.210 Nicotine dependence, cigarettes, uncomplicated; Z79.899 Other long term (current) drug therapy
CPT/HCPCS: 71045; 80053; 84484; 85025; 93005; 96374; J2060

== ENCOUNTER 2020-01-28 23:20 | Emergency (ER) | payer OTHER ==
[2020-01-28] MEDS ORDERED: Dexamethasone 10 MG/ML VIAL ONE (23:44)
== END 2020-01-28 23:50 | disposition home or self-care (01) ==
LOC: ERS 23:20
DX: L25.9 Unspecified contact dermatitis, unspecified cause (principal); E03.9 Hypothyroidism, unspecified; E87.5 Hyperkalemia; F41.9 Anxiety disorder, unspecified; F32.9 Major depressive disorder, single episode, unspecified; F17.210 Nicotine dependence, cigarettes, uncomplicated; Z79.899 Other long term (current) drug therapy
CPT/HCPCS: 96372; 99282; J1100

== ENCOUNTER 2020-07-22 21:02 | Emergency (ER) | payer OTHER ==
--- NOTE | 2020-07-22 21:48 | RAD ---
Exam: Chest one view HISTORY:Shortness of breath Comparison: 09/09/2021 FINDINGS: Cardiac silhouette: Normal Aorta: Unremarkable Pulmonary vessels: Normal Costophrenic angles: Clear LUNGS: No masses or consolidation. Pneumothorax: None Osseous abnormalities: None IMPRESSION: No acute cardiopulmonary process.
[2020-07-22] MEDS ORDERED: Ondansetron PF 4 MG/2 ML Vial ONE (22:00)
[2020-07-22] MEDS ORDERED: Ketorolac Tromethamine 30 MG/ML VIAL ONE (22:00)
[2020-07-22 22:31] LABS: #Basophils 0.1 thou/uL (0.0-0.2); #Eosinphils 0.4 thou/uL (0.0-0.7); #Lymphocytes 4.1 thou/uL (1.20-3.40); #Monocytes 0.5 thou/uL (0.11-0.59); #Neutrophils 7.9 thou/uL (1.40-6.50); %Basophils 1.1 % (0.0-1.0); %Lymphocytes 31.5 % (21.0-51.0); %Monocytes 3.7 % (0.0-10.0); %Neutrophils 60.8 % (42.0-75.0); Hemoglobin 14.4 g/dL (12.0-16.0); Mean Corpuscular HGB CONC 34.8 g/dL (32.0-36.0); Mean Corpuscular Hemoglobin 32.9 pg (27.0-31.0); Mean Corpuscular Volume 94.4 fL (78.0-98.0); Mean Platelet Volume 9.9 fL (7.4-10.4); Platelet Count 265 thou/uL (130-400); RBC Distribution Width 11.3 % (11.5-14.5); White Blood Cell (WBC) Count 12.9 thou/uL (4.8-10.8)
[2020-07-22 22:52] LABS: ALT (SGPT) 52 U/L (8-55); AST (SGOT) 39 U/L (5-34); Albumin 4.8 g/dL (3.5-5.0); Alkaline Phosphatase 88 U/L (40-110); Anion Gap 17 mmol/L (10-20); BUN (Urea Nitrogen) 17 mg/dL (9.8-20.1); Bilirubin, Total 0.2 mg/dL (0.2-1.2); Calc. Creatinine Clearance 0 mL/min (70-130); Calcium 10.3 mg/dL (7.8-10.44); Carbon Dioxide 27 mmol/L (22-29); Chloride 101 mmol/L (98-107); Globulin 3.4 g/dL (2.4-3.5); Glucose 90 mg/dL (70-105); Lipase 54 U/L (8-78); Potassium 4.3 mmol/L (3.5-5.1); Protein, Total 8.2 g/dL (6.0-8.3); Sodium 141 mmol/L (136-145)
[2020-07-22] MEDS ORDERED: diphenhydrAMINE 50 MG/ML VIAL ONE (23:14)
[2020-07-22] MEDS ORDERED: Metoclopramide HCl 10 MG/2 ML VIAL ONE (23:14)
[2020-07-22 23:45] LABS: Bacteria/HPF None Seen HPF (None Seen); Bilirubin Negative (Negative); Blood, Urine Negative (Negative); Calcium Oxalate Crystals 3+ HPF (None Seen); Clarity Clear (Clear); Glucose, Urine (Dipstick) Normal (Negative); Ketone, Urine Negative (Negative); Leukocyte 25 Leu/uL (Negative); Nitrite Negative (Negative); Protein, Urine (Dipstick) Negative (Neg-Trace); RBC/HPF 0-3 HPF (0-3); Specific Gravity, Urine 1.016 (1.002-1.036); Squamous Epithelial 0-3 HPF (0-3); Urobilinogen Normal mg/dL (Less than 2); WBC/HPF 0-3 HPF (0-3); pH, Urine 5.5 (5.0-9.0)
--- NOTE | 2020-07-22 23:51 | CT ---
EXAM: CT ABDOMEN AND PELVIS HISTORY: General malaise x3 days. Nausea and vomiting. Epigastric pain. COMPARISON: 12/27/2018 Procedure: Multiple contiguous axial images were obtained and a CT of the abdomen and pelvis with IV contrast. C oronal reformats were performed. FINDINGS: Lower Chest: within normal limits. Vessels: Normal caliber aorta. No significant periaortic fat stranding. Minimal atherosclerosis. Heart: Normal heart size. No significant pericardial fluid Abdomen: Portal vein:Patent Gallbladder: Surgically absent Liver: within normal limits. 2.4 cm hypodensity in the right hepatic lobe, too small to characterize. Pancreas: within normal limits. Spleen: within normal limits. Adrenals: within normal limits. Kidneys: Symmetric enhancement. No obstructive uropathy. Peritoneum: No ascites or free air, no fluid collection. Bowel: Limited evaluation due to lack of oral contrast. There is evidence of previous bariatric surge ry. Multiple normal caliber small bowel loops. Normal ileocecal junction. Normal caliber appendix. Scattered fecal material in a nondistended, nondilated colon. Mesentery and Retroperitoneum: No enlarged mesenteric or retroperitoneal lymph nodes. Abdominal Wall: within normal limits. Pelvis: Reproductive Organs: Surgically absent uterus. Pelvis: No mass, lymphadenopathy, free air or free fluid. Bladder: within normal limits. Bones: within normal limits. IMPRESSION: No evidence of acute intraabdominal\pelvic abnormality.
[2020-07-23] MEDS ORDERED: Morphine 4 MG/ML VIAL ONE (00:04)
[2020-07-23 05:21] LABS: SARS-CoV-2 N Gene Negative; SARS-CoV-2 S Gene Negative; SARS-CoV-2 by NAA Not Detected (NotDetected); SARS-CoV-2 orf1ab Negative
[2020-07-23 05:22] LABS: SARS-CoV-2 MS2 Positive
== END 2020-07-23 01:27 | disposition home or self-care (01) ==
LOC: ERS 21:02
DX: M79.10 Myalgia, unspecified site (principal); R10.816 Epigastric abdominal tenderness; R10.32 Left lower quadrant pain; R11.2 Nausea with vomiting, unspecified; J45.909 Unspecified asthma, uncomplicated; E78.5 Hyperlipidemia, unspecified; E03.9 Hypothyroidism, unspecified; F17.210 Nicotine dependence, cigarettes, uncomplicated; Z79.899 Other long term (current) drug therapy; Z20.822 Contact with and (suspected) exposure to COVID-19
CPT/HCPCS: 71045; 74177; 80053; 81003; 81015; 83690; 85025; 87635; 87804; 96374; 96375; J1200; J1885; J2270; J2405; J2765; U0003

== ENCOUNTER 2020-11-30 22:29 | Observation (INO) | payer OTHER ==
[~2020-11-30 22:29] MED LIST changes: -ISOVUE-370 76%-LOCM 1 ML ONE; +Iopamidol-370 76% 500 ML 1 ML ONE
[2020-11-30] MEDS ORDERED: Aspirin 325 MG TAB ONE (22:49)
[2020-11-30 22:52] LABS: #Basophils 0.1 thou/uL (0.0-0.2); #Eosinphils 0.3 thou/uL (0.0-0.7); #Lymphocytes 3.8 thou/uL (1.20-3.40); #Monocytes 0.6 thou/uL (0.11-0.59); #Neutrophils 5.5 thou/uL (1.40-6.50); %Basophils 1.1 % (0.0-1.0); %Eosinophils 2.8 % (0.0-10.0); %Lymphocytes 37.2 % (21.0-51.0); %Monocytes 5.8 % (0.0-10.0); %Neutrophils 53.1 % (42.0-75.0); Mean Corpuscular HGB CONC 33.5 g/dL (32.0-36.0); Mean Corpuscular Hemoglobin 32.2 pg (27.0-31.0); Mean Corpuscular Volume 96.3 fL (78.0-98.0); Mean Platelet Volume 10.4 fL (7.4-10.4); Platelet Count 200 thou/uL (130-400); RBC Distribution Width 11.2 % (11.5-14.5); Red Blood Cell (RBC) Count 4.34 mill/uL (4.20-5.40); White Blood Cell (WBC) Count 10.3 thou/uL (4.8-10.8)
[2020-11-30 23:16] LABS: ALT (SGPT) 13 U/L (8-55); AST (SGOT) 19 U/L (5-34); Albumin 4.5 g/dL (3.5-5.0); Alkaline Phosphatase 77 U/L (40-110); Anion Gap 15 mmol/L (10-20); BUN (Urea Nitrogen) 12 mg/dL (9.8-20.1); Bilirubin, Total 0.5 mg/dL (0.2-1.2); Calc. Creatinine Clearance 0 mL/min (70-130); Calcium 10.2 mg/dL (7.8-10.44); Carbon Dioxide 23 mmol/L (22-29); Chloride 107 mmol/L (98-107); Globulin 3.1 g/dL (2.4-3.5); Glucose 65 mg/dL (70-105); Lipase 31 U/L (8-78); Protein, Total 7.6 g/dL (6.0-8.3); Sodium 141 mmol/L (136-145)
[2020-11-30] MEDS ORDERED: Morphine 4 MG/ML VIAL ONE (23:45)
[2020-11-30] MEDS ORDERED: Ondansetron PF 4 MG/2 ML Vial ONE (23:45)
[2020-12-01] MEDS ORDERED: Ondansetron PF 4 MG/2 ML Vial ONE (00:15)
[2020-12-01] MEDS ORDERED: Mag-Al 1200 mg/1200 mg/30 ML UDCUP ONE (00:29)
[2020-12-01] MEDS ORDERED: Lidocaine Viscous Sol 2% 15 ml UD Cup ONE (00:29)
[2020-12-01] MEDS ORDERED: Morphine 4 MG/ML VIAL SLOW IVP PRN (01:17)
[2020-12-01] MEDS ORDERED: Ondansetron PF 4 MG/2 ML Vial IVP PRN (01:17)
[2020-12-01] MEDS ORDERED: Morphine 4 MG/ML VIAL ONE (01:18)
[2020-12-01] MEDS ORDERED: Promethazine HCl 25 MG/ML VIAL ONE (01:18)
[2020-12-01] MEDS ORDERED: Promethazine HCl 25 MG/ML VIAL IM SCH (01:30)
[2020-12-01 02:29] LABS: Troponin I Less than 0.010 ng/mL (< 0.028)
[2020-12-01] MEDS ORDERED: Nitroglycerin 2% Ointment 1 INCH/1 GM Packet ONE (04:52)
[2020-12-01] MEDS ORDERED: Nitroglycerin 2% Ointment 1 INCH/1 GM Packet TOP SCH (06:00)
[2020-12-01 06:19] LABS: Troponin I 0.012 ng/mL (< 0.028)
[2020-12-01 06:29] LABS: SARS-CoV-2 NAA Rapid Test Not Detected (NotDetected)
[2020-12-01] MEDS ORDERED: Aspirin Chewable 81 MG TAB PO SCH (09:00)
[2020-12-01] MEDS ORDERED: Regadenoson 0.4 MG/5 ML SYRINGE ONE (09:54)
[2020-12-01 12:20] VITALS: BP 111/72; TEMP 97.7
== END 2020-12-01 13:53 | disposition home or self-care (01) ==
LOC: ERS 22:29 → ERHOLD 12-01 00:25
PROVIDERS: ADMIT Internal Medicine; ATTEND Internal Medicine
DX: R07.9 Chest pain, unspecified (principal); R06.02 Shortness of breath; E78.5 Hyperlipidemia, unspecified; E03.9 Hypothyroidism, unspecified; K58.9 Irritable bowel syndrome, unspecified; F17.210 Nicotine dependence, cigarettes, uncomplicated; J45.909 Unspecified asthma, uncomplicated; Z79.899 Other long term (current) drug therapy; Z20.822 Contact with and (suspected) exposure to COVID-19
CPT/HCPCS: 36415; 71045; 71275; 78452; 80053; 83690; 83880; 84484; 85025; 85379; 93005; 93017; 94760; 96365; 96366; 96375; 96376; A9500; G0378; J2270; J2405; J2550; J2785; Q9967; U0002; U0005

== ENCOUNTER 2021-06-20 00:47 | Emergency (ER) | payer OTHER ==
[2021-06-20] MEDS ORDERED: Dexamethasone 10 MG/ML VIAL ONE (02:20)
== END 2021-06-20 02:45 | disposition home or self-care (01) ==
LOC: ERS 00:47
DX: L25.9 Unspecified contact dermatitis, unspecified cause (principal); E03.9 Hypothyroidism, unspecified; J45.909 Unspecified asthma, uncomplicated; Z79.899 Other long term (current) drug therapy
CPT/HCPCS: 96372; 99282; J1100

== ENCOUNTER 2021-09-06 21:01 | Emergency (ER) | payer OTHER ==
[2021-09-06] MEDS ORDERED: Ondansetron PF 4 MG/2 ML Vial ONE (22:59)
[2021-09-06] MEDS ORDERED: Ketorolac Tromethamine 30 MG/ML VIAL ONE (22:59)
[2021-09-06] MEDS ORDERED: Morphine 4 MG/ML VIAL ONE (22:59)
== END 2021-09-07 00:25 | disposition home or self-care (01) ==
LOC: ERS 21:01
DX: S80.212A Abrasion, left knee, initial encounter (principal); M25.552 Pain in left hip; W18.42XA Slipping, tripping and stumbling without falling due to stepping into hole or opening, initial encounter; Z79.899 Other long term (current) drug therapy; E03.9 Hypothyroidism, unspecified; J45.909 Unspecified asthma, uncomplicated; F17.210 Nicotine dependence, cigarettes, uncomplicated; M25.522 Pain in left elbow
CPT/HCPCS: 96374; 96375; J1885; J2270; J2405

== ENCOUNTER 2022-05-12 05:15 | Emergency (ER) | payer BC ==
[2022-05-12] MEDS ORDERED: Ketorolac Tromethamine 30 MG/ML VIAL ONE (05:25)
[2022-05-12] MEDS ORDERED: Morphine 4 MG/ML VIAL ONE (05:25)
== END 2022-05-12 06:00 | disposition home or self-care (01) ==
LOC: ERS 05:15
DX: S39.012A Strain of muscle, fascia and tendon of lower back, initial encounter (principal); M54.16 Radiculopathy, lumbar region; M54.42 Lumbago with sciatica, left side; E03.9 Hypothyroidism, unspecified; F17.210 Nicotine dependence, cigarettes, uncomplicated; X50.1XXA Overexertion from prolonged static or awkward postures, initial encounter
CPT/HCPCS: 96372; 99283; J1885; J2270

== ENCOUNTER 2022-05-13 11:07 | Emergency (ER) | payer BC ==
[2022-05-13] MEDS ORDERED: FENTANYL 50 MCG/ML VIAL 50 MCG/ML VIAL ONE (11:38)
[2022-05-13] MEDS ORDERED: Ketorolac Tromethamine 30 MG/ML VIAL ONE (11:38)
[2022-05-13] MEDS ORDERED: Diazepam 5 MG TAB ONE (11:38)
[2022-05-13 11:56] LABS: #Basophils 0.1 thou/uL (0.0-0.2); #Lymphocytes 1.8 thou/uL (1.20-3.40); #Monocytes 0.2 thou/uL (0.11-0.59); %Basophils 0.9 % (0.0-1.0); %Eosinophils 0.2 % (0.0-10.0); %Lymphocytes 11.9 % (21.0-51.0); %Monocytes 1.5 % (0.0-10.0); %Neutrophils 85.4 % (42.0-75.0); Hemoglobin 12.6 g/dL (12.0-16.0); Mean Corpuscular HGB CONC 33.7 g/dL (32.0-36.0); Mean Platelet Volume 9.9 fL (7.4-10.4); Platelet Count 244 thou/uL (130-400); Red Blood Cell (RBC) Count 3.81 mill/uL (4.20-5.40); White Blood Cell (WBC) Count 15.3 thou/uL (4.8-10.8)
[2022-05-13 12:16] LABS: ALT (SGPT) 21 U/L (8-55); AST (SGOT) 16 U/L (5-34); Albumin 4.2 g/dL (3.5-5.0); Alkaline Phosphatase 68 U/L (40-110); Anion Gap 14 mmol/L (10-20); BUN (Urea Nitrogen) 10 mg/dL (9.8-20.1); Bilirubin, Total 0.2 mg/dL (0.2-1.2); Calc. Creatinine Clearance 0 mL/min (70-130); Calcium 9.4 mg/dL (7.8-10.44); Carbon Dioxide 22 mmol/L (22-29); Chloride 110 mmol/L (98-107); Estimated GFR 99; Globulin 2.3 g/dL (2.4-3.5); Glucose 119 mg/dL (70-105); Lipase 44 U/L (8-78); Potassium 3.9 mmol/L (3.5-5.1); Protein, Total 6.5 g/dL (6.0-8.3); Sodium 142 mmol/L (136-145)
[2022-05-13] MEDS ORDERED: HYDROmorphone 0.5 MG/0.5 ML SYRINGE ONE ×2 (12:23→13:42)
[2022-05-13] MEDS ORDERED: Dexamethasone 10 MG/ML VIAL ONE (12:24)
[2022-05-13 13:37] LABS: Bilirubin Negative (Negative); Blood, Urine Negative (Negative); Calcium Oxalate Crystals Rare HPF (None Seen); Clarity Clear (Clear); Glucose, Urine (Dipstick) 50 mg/dL (Negative); Ketone, Urine Trace mg/dL (Negative); Leukocyte 250 Leu/uL (Negative); Nitrite Negative (Negative); Protein, Urine (Dipstick) 20 mg/dL (Neg-Trace); RBC/HPF 0-3 HPF (0-3); Specific Gravity, Urine 1.032 (1.002-1.036); Urobilinogen Normal mg/dL (Less than 2)
[2022-05-13 13:38] LABS: Bacteria/HPF 1+ HPF (None Seen)
[2022-05-13] MEDS ORDERED: HYDROcodone/Acetaminophen 5/325 mg Tablet ONE (15:07)
[2022-05-13] MEDS ORDERED: Gabapentin 300 MG CAP PO SCH (15:15)
== END 2022-05-13 17:00 | disposition home or self-care (01) ==
LOC: ERS 11:07
DX: M47.816 Spondylosis without myelopathy or radiculopathy, lumbar region (principal); M48.062 Spinal stenosis, lumbar region with neurogenic claudication; E03.9 Hypothyroidism, unspecified; F17.210 Nicotine dependence, cigarettes, uncomplicated
CPT/HCPCS: 36415; 72131; 72148; 80053; 81003; 81015; 83690; 85025; 85652; 86140; 96374; 96375; 96376; J1100; J1170; J1885; J3010

== ENCOUNTER 2022-09-20 05:48 | Day surgery (SDC) | payer BC ==
[2022-09-18 10:20] VITALS: BMI 25.3
[2022-09-20] MEDS ORDERED: Bupivacaine HCl 0.5%/Epinephrine 1:200,000/PF 30 ml Vial ONE (06:34)
[2022-09-20] MEDS ORDERED: Thrombin 5000 UNITS/5 ML VIAL ONE (06:34)
[2022-09-20] MEDS ORDERED: Fentanyl 250 MCG/5 ML VIAL ONE (06:42)
[2022-09-20] MEDS ORDERED: CEFAZOLIN 2 GM VIAL ONE ×2 (06:50→10:57)
[2022-09-20] MEDS ORDERED: Sodium Chloride 0.9% 100 ML ONE ×2 (06:50→10:57)
[2022-09-20] MEDS ORDERED: Midazolam HCl 2 mg/2 ml Vial ONE (07:00)
[2022-09-20] MEDS ORDERED: Rocuronium Bromide 10 MG/ML (10ML VIAL) ONE (07:07)
[2022-09-20] MEDS ORDERED: Glycopyrrolate 0.2 MG/ML 5 ML SYRINGE ONE (07:07)
[2022-09-20] MEDS ORDERED: NEOSTIGMINE 3 MG/3 ML SYR 3 MG/3 ML SYRINGE ONE (07:07)
[2022-09-20] MEDS ORDERED: Lidocaine 1% PF 5 ML VIAL ONE (07:07)
[2022-09-20] MEDS ORDERED: Dexamethasone 20 MG/5 ML VIAL ONE (07:07)
[2022-09-20] MEDS ORDERED: Ondansetron PF 4 MG/2 ML Vial ONE (07:07)
[2022-09-20] MEDS ORDERED: Ketorolac Tromethamine 30 MG/ML VIAL ONE (07:07)
[2022-09-20] MEDS ORDERED: PROPOFOL 200 MG/20 ML VIAL ONE (07:07)
[2022-09-20] MEDS ORDERED: fentaNYL PF 100 MCG/2 ML SYRINGE ONE (08:33)
[2022-09-20] MEDS ORDERED: HYDROcodone/Acetaminophen 5/325 mg Tablet ONE (09:46)
== END 2022-09-20 11:27 | disposition home or self-care (01) ==
LOC: SDC 05:48
PROVIDERS: ATTEND Neurological Surgery
PROC: 0SB20ZZ Excision of Lumbar Vertebral Disc, Open Approach (ICD-10-PCS; principal; 2022-09-20)
DX: M51.16 Intervertebral disc disorders with radiculopathy, lumbar region (principal); E78.5 Hyperlipidemia, unspecified; G89.29 Other chronic pain; E03.9 Hypothyroidism, unspecified; F17.210 Nicotine dependence, cigarettes, uncomplicated; Z79.890 Hormone replacement therapy; Z79.899 Other long term (current) drug therapy
CPT/HCPCS: J2250; J3010; J3490

== ENCOUNTER 2022-12-27 02:13 | Emergency (ER) | payer BC ==
[2022-12-27] MEDS ORDERED: Ondansetron PF 4 MG/2 ML Vial ONE (03:06)
[2022-12-27] MEDS ORDERED: Ketorolac Tromethamine 30 MG/ML VIAL ONE (03:06)
[2022-12-27 03:33] LABS: #Basophils 0.1 thou/uL (0.0-0.2); #Eosinphils 0.3 thou/uL (0.0-0.7); #Monocytes 0.7 thou/uL (0.11-0.59); #Neutrophils 5.1 thou/uL (1.40-6.50); %Eosinophils 2.9 % (0.0-10.0); %Lymphocytes 40.6 % (21.0-51.0); %Monocytes 6.6 % (0.0-10.0); %Neutrophils 48.6 % (42.0-75.0); Hemoglobin 12.2 g/dL (12.0-16.0); Mean Corpuscular HGB CONC 32.7 g/dL (32.0-36.0); Mean Corpuscular Hemoglobin 32.2 pg (27.0-31.0); Mean Corpuscular Volume 98.4 fl (78.0-98.0); Mean Platelet Volume 12.3 fL (7.4-10.4); Platelet Count 227 10x3/uL (130-400); RBC Distribution Width 12.1 % (11.5-14.5); Red Blood Cell (RBC) Count 3.79 mill/uL (4.20-5.40); White Blood Cell (WBC) Count 10.4 10x3/uL (4.8-10.8)
[2022-12-27 03:57] LABS: ALT (SGPT) 11 U/L (8-55); AST (SGOT) 23 U/L (5-34); Albumin 3.7 g/dL (3.5-5.0); Alkaline Phosphatase 66 U/L (40-110); Anion Gap 12 mmol/L (10-20); BUN (Urea Nitrogen) 8 mg/dL (9.8-20.1); Bilirubin, Total 0.2 mg/dL (0.2-1.2); Calc. Creatinine Clearance 0 mL/min (70-130); Carbon Dioxide 25 mmol/L (22-29); Chloride 108 mmol/L (98-107); Estimated GFR 86; Globulin 2.4 g/dL (2.4-3.5); Glucose 80 mg/dL (70-105); Lipase 33 U/L (8-78); Potassium 3.8 mmol/L (3.5-5.1); Protein, Total 6.1 g/dL (6.0-8.3); Sodium 141 mmol/L (136-145)
[2022-12-27 06:55] LABS: SARS-CoV-2 NAA Rapid Test Not Detected (NotDetected)
== END 2022-12-27 06:03 | disposition home or self-care (01) ==
LOC: ERS 02:13
DX: R51.9 Headache, unspecified (principal); R19.7 Diarrhea, unspecified; E03.9 Hypothyroidism, unspecified; F17.210 Nicotine dependence, cigarettes, uncomplicated; Z79.899 Other long term (current) drug therapy; Z20.822 Contact with and (suspected) exposure to COVID-19
CPT/HCPCS: 36415; 80053; 83690; 85025; 96361; 96374; 96375; J1885; J2405